=== PATIENT | male | born 1980 | race African-American/Black ===

== ENCOUNTER 2019-06-14 11:05 | Emergency (ER) | payer OTHER ==
--- NOTE | 2019-06-14 12:18 | ED Physician Documentation ---
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 No other injuries. He says he might of hit his head but he denies any head or neck pain. No loss of consciousness.) - History of Present Illness Timing - onset: Today Review of Systems Ten Systems: 10 systems reviewed and negative Constitutional: reports: Reviewed and negative Cardiac: reports: Reviewed and negative Respiratory: reports: Reviewed and negative PD PAST MEDICAL HISTORY - Present Medications Home Medications: Ambulatory Orders Medication Instructions Recorded Confirmed Hydrocodone/Acetaminophen 1 - 2 each PO Q6H PRN #14 tablet 06/14/19 [Hydrocodon-Acetaminophen 5-325] Ibuprofen 600 mg PRN 06/14/19 - Allergies Allergies/Adverse Reactions: Allergies Allergy/AdvReac Type Severity Reaction Status Date / Time No Known Drug Allergies Allergy Verified 06/14/19 11:15 PD ED PE NORMAL - Vitals Vital signs reviewed: Yes - General General: Alert and oriented X 3, Other (He appears uncomfortable and winces with motion) - HEENT HEENT: PERRL, EOMI - Neck Neck: Supple, no meningeal sign, No bony TTP - Cardiac Cardiac: RRR, No murmur - Respiratory Respiratory: No respiratory distress, Clear bilaterally - Abdomen Abdomen: Non distended, Other (He is quite tender over the left flank and ribs low down on the left, a little bit of midline tenderness in the thoracic and lumbar spines but not much. There is mild left upper quadrant tenderness without surgical signs.) - Extremities Extremities: No deformity, No tenderness to palpate, Normal ROM s pain, No edema, No calf tenderness / cord - Neuro Neuro: Alert and oriented X 3, No motor deficit, No sensory deficit, Normal speech Results - Vitals Vitals: Vital Signs - 24 hr 06/14/19 11:12 Temperature 37.1 C Heart Rate 70 Respiratory 16 Rate Blood Pressure 128/69 O2 Saturation 97 Oxygen O2 Source Room air - Labs Labs: Laboratory Tests 06/14/19 06/14/19 12:30 12:30 WBC 5.8 RBC 4.05 L Hgb 12.9 L Hct 39.4 L MCV 97.3 H MCH 31.9 H MCHC 32.7 RDW 12.4 Plt Count 200 MPV 10.3 Neut # (Auto) 3.5 Lymph # (Auto) 1.7 [place] # (Auto) 0.5 Eos # (Auto) 0.0 Baso # (Auto) 0.1 Absolute Nucleated RBC 0.00 Nucleated RBC % 0.0 Sodium 134 L Potassium 4.1 Chloride 104 Carbon Dioxide 24 Anion Gap 6.0 BUN 13 Creatinine 0.9 Estimated GFR (MDRD) 115 Glucose 98 Calcium 8.9 Total Bilirubin 0.7 AST 21 ALT 15 Alkaline Phosphatase 45 Total Protein 7.4 Albumin 4.3 Globulin 3.1 Albumin/Globulin Ratio 1.4 Lipase 21 L - Rads (name of study) CT of the chest abdomen and pelvis Radiology: EMP read contemporaneously (Normal) PD MEDICAL DECISION MAKING - ED course ED course: 39-year-old gentleman fell from a modest height onto his left side and back. Some concern for internal injuries and rib fracture, but CT is negative for same. No apparent head or neck injury. Departure - Departure Disposition: 01 Home, Self Care Clinical Impression: Contusion of chest wall Qualifiers: Encounter type: initial encounter Laterality: left Qualified Code(s): S20.212A - Contusion of left front wall of thorax, initial encounter Abdominal wall contusion Qualifiers: Encounter type: initial encounter Qualified Code(s): S30.1XXA - Contusion of abdominal wall, initial encounter Fall from ladder Qualifiers: Encounter type: initial encounter Qualified Code(s): W11.XXXA - Fall on and from ladder, initial encounter Condition: Good Record reviewed to determine appropriate education?: Yes Instructions: ED Contusion Chest Wall Prescriptions: Hydrocodone/Acetaminophen [Hydrocodon-Acetaminophen 5-325] 1 - 2 each PO Q6H PRN #14 tablet PRN Reason: pain Comments: Call your doctor to arrange a follow-up appointment, make the next available appointment. In the interim, return anytime if worse or if new symptoms develop. Do not drink or drive while taking narcotic pain medication. Note that many narcotic pain relievers also contain Tylenol/acetaminophen. Please ensure that your total dose of acetaminophen from all sources does not exceed 3 g (3000 mg) per day. You may get constipated while on this medication. Take a stool softener such as Colace twice a day while you are on it. Also add an [id number] laxative such as senna or MiraLAX on any day that you do not have a bowel movement. If you received a narcotic pain medication or sedative while in the emergency department, do not drive for the next 24 hours. Forms: Activity restrictions
[2019-06-14 12:36] LABS: BASOPHILS # (AUTO) 0.1 10^3/uL (0.0-0.1); BASOPHILS % (AUTO) 0.9 %; EOSINOPHILS % (AUTO) 0.3 %; HGB - HEMOGLOBIN 12.9 g/dL (14.0-18.0); LYMPHOCYTES # (AUTO) 1.7 10^3/uL (1.5-3.5); LYMPHOCYTES % (AUTO) 30.2 %; MEAN CORPUSCULAR HEMOGLOBIN 31.9 pg (27.0-31.0); MEAN CORPUSCULAR HGB CONC 32.7 g/dL (32.0-36.0); MEAN CORPUSCULAR VOLUME 97.3 fL (80.0-94.0); MEAN PLATELET VOLUME 10.3 fL (7.4-11.4); MONOCYTES # (AUTO) 0.5 10^3/uL (0.0-1.0); NEUTROPHILS # (AUTO) 3.5 10^3/uL (1.5-6.6); NEUTROPHILS % (AUTO) 60.4 %; PLT - PLATELET COUNT 200 10^3/uL (130-450); RED BLOOD COUNT 4.05 10^6/uL (4.70-6.10); RED CELL DISTRIBUTION WIDTH 12.4 % (12.0-15.0); WHITE BLOOD COUNT 5.8 x10^3/uL (4.8-10.8)
[2019-06-14] MEDS ORDERED: IOVERSOL 320 100 ML VIAL IVP ONE ×2 (12:38→13:14)
[2019-06-14 12:49] LABS: ALBUMIN 4.3 g/dL (3.2-5.5); ALBUMIN/GLOBULIN RATIO 1.4 (1.0-2.2); BILIRUBIN,TOTAL 0.7 mg/dL (0.2-1.0); CALCIUM 8.9 mg/dL (8.5-10.3); CREATININE 0.9 mg/dL (0.6-1.2); TOTAL PROTEIN 7.4 g/dL (6.7-8.2)
[2019-06-14] MEDS ORDERED: HYDROmorphone 1 MG/ML SYRINGE IVP STA ×2 (13:15→13:51)
[2019-06-14] MEDS ORDERED: ONDANSETRON 4 MG/2 ML VIAL IVP STA (13:15)
--- NOTE | 2019-06-14 13:34 | CT Report ---
Reason: Left chest/abd/flank trauma, IV only Procedure Date: 06/14/2019 Accession Number: [id number] / [id number] Procedure: CT - Abdomen/Pelvis W CPT Code: Final Report FULL RESULT: EXAM: CT ABDOMEN AND PELVIS EXAM DATE: 06/14/2019 01:07 PM. CLINICAL HISTORY: Left chest/abd/flank trauma, IV only. COMPARISONS: None. TECHNIQUE: Routine helical CT imaging was performed through the abdomen and pelvis. IV contrast: 100 mL of Optiray 320. Enteric contrast: No. Reconstructions: Coronal and sagittal. In accordance with CT protocol optimization, one or more of the following dose reduction techniques were utilized for this exam: automated exposure control, adjustment of mA and/or KV based on patient size, or use of iterative reconstructive technique. FINDINGS: Lung Bases: Unremarkable. Liver: Normal. No masses. Gallbladder/Bile Ducts: Unremarkable. Spleen: Normal. Pancreas: Normal. Adrenal Glands: Normal. Kidneys: Normal. No masses or hydronephrosis. Peritoneal Cavity/Bowel: Normal. No free fluid, free air or adenopathy. No masses or acute inflammatory process. The appendix is well visualized and normal. Pelvic Organs: Normal. The bladder and visualized pelvic organs are within normal limits. Vasculature: Incidental note is made of a circumaortic left renal vein. No aneurysms or other significant abnormality. Bones: No significant abnormality. Other: None. IMPRESSION: 1. No evidence of traumatic injury to the solid abdominal organs or secondary signs of bowel injury. 2. Multiple prominent by lateral groin lymph nodes may be reactive in nature. 3. Incidental note is made of a circumaortic left renal vein. RADIA
--- NOTE | 2019-06-14 13:37 | CT Report ---
Reason: Left chest/abd/flank trauma, IV only Procedure Date: 06/14/2019 Accession Number: [id number] / [id number] Procedure: CT - CHEST W CPT Code: Final Report FULL RESULT: EXAM: CT CHEST EXAM DATE: 06/14/2019 01:07 PM. CLINICAL HISTORY: Left chest/abd/flank trauma, pain. COMPARISONS: ABDOMEN/PELVIS W/ 06/14/2019 12:04 PM. TECHNIQUE: Routine helical CT imaging was performed through the chest. IV contrast: 100 mL Optiray 20. Reconstructions: Coronal and sagittal. In accordance with CT protocol optimization, one or more of the following dose reduction techniques were utilized for this exam: automated exposure control, adjustment of mA and/or KV based on patient size, or use of iterative reconstructive technique. FINDINGS: Lungs/Pleura: Trachea and central bronchi appear patent. Mild respiratory motion artifact. No focal lung consolidation. No pleural effusion. No pneumothorax. No mass. Small amount of atelectasis. Mediastinum: Cardiac size appears normal. No pericardial effusion. Aorta and great vessels appear unremarkable. No bulky adenopathy. Visualized thyroid appears unremarkable. Bones: Unremarkable. Visualized Abdomen: Please see separately reported CT abdomen/pelvis for additional details of that exam. Other: None. IMPRESSION: No acute traumatic injury identified within the chest. No pneumothorax. RADIA
[2019-06-14] MEDS ORDERED: KETOROLAC 30 MG/ML VIAL IVP STA (13:51)
[2019-06-14 14:13] VITALS: BP 111/63
== END 2019-06-14 14:34 | disposition home or self-care (01) ==
LOC: ED 11:05
DX: S20.212A Contusion of left front wall of thorax, initial encounter (principal); S30.1XXA Contusion of abdominal wall, initial encounter; W11.XXXA Fall on and from ladder, initial encounter; Y92.62 Dock or shipyard as the place of occurrence of the external cause; Y93.89 Activity, other specified; Y99.0 Civilian activity done for income or pay
CPT/HCPCS: 1040M; 36415; 71260; 74177; 80053; 83690; 85025; 96374; 96375; 96376; 99284; J1170; Q9967